=== PATIENT | female | born 1965 | race Caucasian/White ===

== ENCOUNTER 2017-01-29 01:39 | Emergency (ER) | payer MEDICAID, OTHER ==
[2017-01-29] MEDS ORDERED: Sodium Chloride 0.9% 1,000 ML IV STA (02:06)
--- NOTE | 2017-01-29 02:10 | C.PDOC ---
History Of Present Illness 51 y/o F c no PMHx p/w LLQ pain x 1 hour. Patient states she awoke from sleep due to this pain that initially began in the suprapubic area and then began moving towards the L and upwards. The pain is constant, waxing and waning in severity, better after acetaminophen. She notes dark urine. Denies fever, chills , nausea, vomiting, dyspnea, vaginal bleeding, dysuria, increased urinary frequency. LMP 2 years ago. Denies history of similar pain. Time Seen by Provider: 01/29/17 01:59 Chief Complaint (Nursing): Abdominal Pain Past Medical History Vital Signs: Last Vital Signs Temp 98.9 F 01/29/17 01:49 Pulse 79 01/29/17 01:49 Resp 20 01/29/17 01:49 BP 147/90 01/29/17 01:49 Pulse Ox 99 01/29/17 04:46 - [facility] Procedures CLOSURE SKIN & SUBCUTANEOUS NEC (02/13/15) Family History: States: Unknown Family Hx - Social History Hx Tobacco Use: Yes Hx Alcohol Use: Yes Hx Substance Use: No - Immunization History Hx Tetanus Toxoid Vaccination: No Hx Influenza Vaccination: No Hx Pneumococcal Vaccination: No Review Of Systems Except As Marked, All Systems Reviewed And Found Negative. Constitutional: Negative for: Fever Respiratory: Negative for: Shortness of Breath Physical Exam - Physical Exam Additional Physical Exam Comments: Constitutional: No acute distress. Head: Normocephalic. Atraumatic. Eyes: PERRL. ENT: Moist mucous membranes. Neck: Supple. Cardiovascular: Regular rate. Radial pulses 2+ bilaterally. Chest: No tenderness. Respiratory: Clear to auscultation bilaterally. GI: Soft. No tenderness. Nondistended. Back: No tenderness. Musculoskeletal: No tenderness or swelling of extremities. Skin: No rash. Neurologic: Alert, no focal deficit. ED Course And Treatment - Laboratory Results Result Diagrams: 01/29/17 02:22 01/29/17 02:22 O2 Sat by Pulse Oximetry: 99 Medical Decision Making Medical Decision Making: Differential includes UTI, nephrolithiasis. Less likely ovarian torsion, ovarian cyst, diverticulitis. Will test urine, labs, hydrate and toradol. CT abd/pelvis w/o contrast results: FINDINGS: Lower thorax: Minimal atelectasis/scarring. ABDOMEN: Liver: Unremarkable. Gallbladder and bile ducts: No calcified stones. No ductal dilation. Pancreas: Unremarkable. No ductal dilation. Spleen: No splenomegaly. Adrenals: No mass. Kidneys and ureters: Few punctate calculi within kidneys. Mild pelvocaliectasis of LEFT kidney. Mildly dilated LEFT ureter. 0.3 x 0.3 x 0.3 cm calculus within LEFT mid to distal ureter. Stomach and bowel: Few scattered diverticula within colon. No associated inflammatory stranding. No definite mural thickening. No obstruction. Appendix: Normal caliber. No inflammation. PELVIS: Bladder: Unremarkable. No stones. Reproductive: Unremarkable as visualized. ABDOMEN and PELVIS: Intraperitoneal space: No significant fluid collection. No free air. Bones/joints: No acute fracture. Soft tissues: Small umbilical hernia containing fat. Vasculature: Mild atherosclerotic disease. No abdominal aortic aneurysm. Lymph nodes: No pathologically enlarged lymph nodes. IMPRESSION: 1. LEFT mid to distal ureteral calculus with mild hydroureteronephrosis. 2. Incidental/non-acute findings are described above. Patient feels much better at this time. Will discharge, provided with roni f/u urology, return to ER for worsening pain, intractible vomiting, fever, dyspnea, or any other problem. Disposition - Disposition Referrals: Omi Marin MD [Staff Provider] - Disposition: HOME/ ROUTINE Disposition Time: 04:40 Condition: STABLE Prescriptions: Tamsulosin [Flomax] 0.4 mg PO DAILY #5 cap Ibuprofen [Motrin] 600 mg PO Q6 #25 tab Ondansetron ODT [Zofran ODT] 4 mg PO Q8 #12 odt Instructions: Kidney Stones (ED) - Clinical Impression Clinical Impression: Kidney stone
[2017-01-29] MEDS ORDERED: Sodium Chloride 0.9% 1,000 ML ONE (02:23)
[2017-01-29 02:35] LABS: CHLORIDE 103 mmol/L (98-107)
[2017-01-29 02:36] LABS: POTASSIUM 3.6 mmol/L (3.6-5.2); SODIUM 140 mmol/L (132-148)
[2017-01-29 02:38] LABS: ALB/GLOB RATIO 1.5 (1.0-2.1); ALKALINE PHOSPHATASE 68 U/L (38-126); ALT/SGPT 16 U/L (9-52); AST/SGOT 21 U/L (14-36); BASO # 0.1 K/uL (0.0-0.2); BASO % 0.8 % (0.0-2.0); BILIRUBIN,TOTAL 0.5 mg/dL (0.2-1.3); BLOOD UREA NITROGEN 15 mg/dL (7-17); CARBON DIOXIDE 24 mmol/L (22-30); EOS # 0.2 K/uL (0.0-0.7); EOS % 2.6 % (0.0-4.0); GFR AFRICAN-AMERICAN > 60; GLUCOSE,RANDOM 101 mg/dL (65-105); HEMATOCRIT 39.8 % (34.0-47.0); LYMPH # 3.3 K/uL (1.0-4.3); LYMPH % 39.1 % (20.0-40.0); MEAN CORPUSCULAR HEMOGLOBIN 27.2 pg (27.0-31.0); MEAN CORPUSCULAR HGB CONC 32.8 g/dL (33.0-37.0); MEAN PLATELET VOLUME 8.7 fL (7.2-11.7); MONO # 0.7 K/uL (0.0-0.8); MONO % 7.6 % (0.0-10.0); RED CELL DISTRIBUTION WIDTH 13.3 % (11.5-14.5); TOTAL PROTEIN 7.2 g/dL (6.3-8.3); WHITE BLOOD COUNT 8.5 K/uL (4.8-10.8)
[2017-01-29 02:39] LABS: CALCIUM 9.3 mg/dl (8.6-10.4)
[2017-01-29 02:49] LABS: RBC URINE 1301 /hpf (0-3); URINE BILIRUBIN NEGATIVE (NEGATIVE); URINE BLOOD 3+ (NEGATIVE); URINE CALCIUM OXALATE CRYSTALS OCC /hpf (<OCC); URINE GLUCOSE (UA) NORMAL (Normal); URINE KETONE NEGATIVE (NEGATIVE); URINE LEUKOCYTE ESTERASE 1+ Leu/uL (Negative); URINE PROTEIN 1+ mg/dL (NEGATIVE); URINE UROBILINOGEN NORMAL mg/dL (0.2-1.0); WBC URINE 57 /hpf (0-5)
[2017-01-29 02:50] LABS: URINE COLOR LIGHT RED (YELLOW)
--- NOTE | 2017-01-29 04:40 | CT ---
EXAM: CT Abdomen and Pelvis Without Intravenous Contrast CLINICAL HISTORY: 51 years old, female; Pain; Abdominal pain; Localized; Left; Additional info: Hematuria, l flank pain TECHNIQUE: Axial computed tomography images of the abdomen and pelvis without intravenous contrast. This CT exam was performed using one or more of the following dose reduction techniques: automated exposure control, adjustment of the mA and/or kV according to patient size, and/or use of iterative reconstruction technique. Coronal and sagittal reformatted images were created and reviewed. COMPARISON: No relevant prior studies available. FINDINGS: Lower thorax: Minimal atelectasis/scarring. ABDOMEN: Liver: Unremarkable. Gallbladder and bile ducts: No calcified stones. No ductal dilation. Pancreas: Unremarkable. No ductal dilation. Spleen: No splenomegaly. Adrenals: No mass. Kidneys and ureters: Few punctate calculi within kidneys. Mild pelvocaliectasis of LEFT kidney. Mildly dilated LEFT ureter. 0.3 x 0.3 x 0.3 cm calculus within LEFT mid to distal ureter. Stomach and bowel: Few scattered diverticula within colon. No associated inflammatory stranding. No definite mural thickening. No obstruction. Appendix: Normal caliber. No inflammation. PELVIS: Bladder: Unremarkable. No stones. Reproductive: Unremarkable as visualized. ABDOMEN and PELVIS: Intraperitoneal space: No significant fluid collection. No free air. Bones/joints: No acute fracture. Soft tissues: Small umbilical hernia containing fat. Vasculature: Mild atherosclerotic disease. No abdominal aortic aneurysm. Lymph nodes: No pathologically enlarged lymph nodes. IMPRESSION: 1. LEFT mid to distal ureteral calculus with mild hydroureteronephrosis. 2. Incidental/non-acute findings are described above.
[2017-01-29 06:12] VITALS: BP 126/81; PULSE 78; RESP 18; TEMP 98.8; O2SAT 98
== END 2017-01-29 06:13 | disposition home or self-care (01) ==
LOC: C.ER 01:39
DX: N13.2 Hydronephrosis with renal and ureteral calculous obstruction (principal)
CPT/HCPCS: 74176; 80053; 81001; 83690; 84703; 85025; 87086; 96374; 99284; J1885; J7040